=== PATIENT | female | born 1960 | race Caucasian/White ===

== ENCOUNTER 2020-12-12 17:37 | Emergency (ER) ==
[~2020-12-12 17:37] MED LIST: Bupivacaine 0.25% HCL 30 ML VIAL ONE; Fentanyl 100 MCG/2 ML VIAL ONE; Lidocaine 1% w/Epinephrine 1:100K 20 ML VIAL ONE; Midazolam HCl 2 mg/2 ml Vial ONE
[2020-12-12] MEDS ORDERED: Morphine 4 MG/ML VIAL ONE (17:50)
[2020-12-12] MEDS ORDERED: Ondansetron PF 4 MG/2 ML Vial ONE ×2 (17:50→20:11)
[2020-12-12] MEDS ORDERED: Piperacillin/Tazobactam 3.375 GM VIAL ONE (18:05)
[2020-12-12 18:20] LABS: Bilirubin Negative (Negative); Blood, Urine Negative (Negative); Clarity Clear (Clear); Glucose, Urine (Dipstick) Normal (Negative); Ketone, Urine Negative (Negative); Leukocyte Negative Leu/uL (Negative); Nitrite Negative (Negative); Protein, Urine (Dipstick) Negative (Neg-Trace); Urobilinogen Normal mg/dL (Less than 2); pH, Urine 6.5 (5.0-9.0)
[2020-12-12] MEDS ORDERED: Sodium Chloride 0.9% 100 ML ONE (18:22)
[2020-12-12] MEDS ORDERED: Lidocaine 1% PF 5 ML VIAL ONE (18:48)
[2020-12-12] MEDS ORDERED: Glycopyrrolate 0.2 MG/ML 5 ML SYRINGE ONE (18:48)
[2020-12-12] MEDS ORDERED: Rocuronium Bromide 10 MG/ML (10ML VIAL) ONE (18:48)
[2020-12-12] MEDS ORDERED: PROPOFOL 200 MG/20 ML VIAL ONE (18:48)
[2020-12-12] MEDS ORDERED: Succinylcholine 200 MG/10 ml SYRINGE FS ONE (18:48)
[2020-12-12 18:50] LABS: #Eosinphils 0.1 thou/uL (0.0-0.7); #Lymphocytes 0.7 thou/uL (1.20-3.40); #Monocytes 0.4 thou/uL (0.11-0.59); #Neutrophils 3.3 thou/uL (1.40-6.50); %Basophils 0.4 % (0.0-1.0); %Eosinophils 1.2 % (0.0-10.0); %Lymphocytes 16.2 % (21.0-51.0); %Neutrophils 74.3 % (42.0-75.0); Hemoglobin 13.7 g/dL (12.0-16.0); Mean Corpuscular HGB CONC 34.4 g/dL (32.0-36.0); Mean Corpuscular Volume 90.1 fL (78.0-98.0); Red Blood Cell (RBC) Count 4.41 mill/uL (4.20-5.40); White Blood Cell (WBC) Count 4.4 thou/uL (4.8-10.8)
[2020-12-12 19:00] LABS: Anion Gap 13 mmol/L (10-20); BUN (Urea Nitrogen) 11 mg/dL (9.8-20.1); Calc. Creatinine Clearance 0 mL/min (70-130); Calcium 8.9 mg/dL (7.8-10.44); Carbon Dioxide 22 mmol/L (23-31); Chloride 105 mmol/L (98-107); Glucose 147 mg/dL (80-115); Potassium 3.4 mmol/L (3.5-5.1); Sodium 137 mmol/L (136-145)
[2020-12-12 19:04] LABS: Platelet Count 95 thou/uL (130-400)
[2020-12-12 19:05] LABS: Platelet Morphology Comment Appears Decreased; RBC Morphology Normal
[2020-12-12 19:51] LABS: SARS-CoV-2 NAA Rapid Test Not Detected (NotDetected)
[2020-12-12] MEDS ORDERED: Meperidine HCl/PF 25 MG/ML VIAL ONE (20:11)
[2020-12-12] MEDS ORDERED: Ketorolac Tromethamine 30 MG/ML VIAL ONE (20:11)
== END 2020-12-12 18:00 | disposition admitted as inpatient to this hospital (09) ==
LOC: ERS 17:37
DX: K35.80 Unspecified acute appendicitis (principal); Z20.822 Contact with and (suspected) exposure to COVID-19
CPT/HCPCS: 80048; 81003; 85025; 88304; 93005; 96374; 96375; J1885; J2175; J2250; J2270; J2405; J2543; J2704; J3010; J3490; S0020; U0002